=== PATIENT | male | born 1990 | race Caucasian/White ===

== ENCOUNTER 2020-02-19 16:43 | Emergency (ER) | payer SELFPAY ==
[2020-02-19 17:02] VITALS: BMI 47.8
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
[2020-02-19] MEDS ORDERED: ACETAMINOPHEN 325 MG TABLET (FP) PO ONE (17:56)
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
[2020-02-19 21:52] VITALS: BP 185/99; PULSE 66; TEMP 98.2
== END 2020-02-19 20:35 | disposition home or self-care (01) ==
LOC: JER 16:43
DX: M54.5 Low back pain (principal); R51 Headache
CPT/HCPCS: 70450-TC; 70486-TC; 72100-TC-FY; 72125-TC; 73110-TC-RT-FY; 73610-TC-RT-FY; 99285-25